=== PATIENT | female | born 1990 | race Caucasian/White ===

== ENCOUNTER 2022-04-20 11:47 | Inpatient (IN) ==
[2022-04-20 11:24] LABS: Basophils % 0.2 %; Eosinophils # 0.1 K/mcL (0.0-0.6); Eosinophils % 1.2 %; Hematocrit 38.4 % (35.3-44.9); Hemoglobin 13.1 g/dL (11.5-15.4); Immature Granulocytes % 0.5 % (0-4); Lymphocytes # 1.3 K/mcL (0.6-4.6); Lymphocytes % 15.2 %; Mean Corpuscular HGB Conc 34.1 g/dL (31.6-35.5); Mean Corpuscular Hemoglobin 28.9 pg (28.0-33.3); Mean Corpuscular Volume 84.8 fL (83.0-100.0); Mean Platelet Volume 11.8 fL (9.4-12.4); Monocytes # 0.5 K/mcL (0.0-1.3); Monocytes % 5.6 %; Neutrophils # 6.6 K/mcL (1.6-8.9); Platelet Count 101 K/mcL (140-400); Red Blood Count 4.53 M/mcL (3.82-4.97); Red Cell Distribution Width 14.6 % (11.5-14.5); Segmented Neutrophils % 77.3 %; White Blood Count 8.5 K/mcL (4.3-11.1)
[2022-04-20 11:32] LABS: Creatinine,Urine 112 mg/dL; Protein/Creatinine Ratio,Urine 0.18 mg/mg (0.00-0.20)
[2022-04-20 11:42] LABS: Alanine Aminotransferase 12 Units/L (7-52); Aspartate Amino Transferase 16 Units/L (13-39); BUN/Creatinine Ratio 14 (6-26); Blood Urea Nitrogen 7 mg/dL (6-20); Lactate Dehydrogenase 144 Units/L (140-271); eGFR For African Americans > 60 (> 60); eGFR For Non-African Americans > 60 (> 60)
[~2022-04-20 11:47] MED LIST: *HR* FentaNYL (PF) 100 MCG/2 ML VIAL IVP PRN; Azithromycin 500 MG in 0.9 % Sodium Chloride 250 ML IVPB PRN; Famotidine 20 MG/2 ML VIAL IVP PRN; Metoclopramide 10 MG/2 ML VIAL IVP PRN; Naloxone 0.4 MG/ML INJ IVP PRN
[2022-04-20] MEDS ORDERED: Oxytocin 30 UNIT/503 ML BAG IVC SCH (12:00)
[2022-04-20] MEDS ORDERED: EPHEDrine 50 MG/ML VIAL IVP PRN (12:14)
[2022-04-20] MEDS ORDERED: Epidural Premix (fent/bupiv) 110 ML EP SCH (12:15)
[2022-04-20] MEDS ORDERED: Ropivacaine/PF 0.2% 200 ML EP SCH (13:30)
[2022-04-20] MEDS: Ringers Solution, Lactated 1,000 ML IVC SCH ×2 (15:25→19:47)
[2022-04-20 16:00] LABS: Amphetamine Screen,Urine Negative ng/mL (Cutoff=1000); Barbiturate Screen,Urine Negative ng/mL (Cutoff=200); Benzodiazepines Screen,Urine Negative ng/mL (Cutoff=200); Cannabinoid Screen,Urine Negative ng/mL (Cutoff = 50); Cocaine Screen,Urine Negative ng/mL (Cutoff= 300); Opiate Screen,Urine Negative ng/mL (Cutoff=300); Phencyclidine Screen,Urine Negative ng/mL (Cutoff=25)
[2022-04-21] MEDS: Ondansetron 4 MG/2 ML VIAL IVP PRN ×2 (04:27→09:53)
[2022-04-21] MEDS: Ringers Solution, Lactated 1,000 ML IVC SCH (04:28)
[2022-04-21] MEDS ORDERED: Lidocaine -MPF 2% 2 ML VIAL ONE (07:43)
[2022-04-21] MEDS ORDERED: Ropivacaine/PF 0.2% 20 ML VIAL ONE (07:44)
[2022-04-21] MEDS ORDERED: *HR* Buprenorphine HCl 8 MG TAB.SUBL SL SCH (09:00)
[2022-04-21] MEDS ORDERED: CeFAZolin Syr 3,000MG/30 ML 3,000 MG/30 ML SYRINGE IVPB ONE (18:33)
[2022-04-21] MEDS ORDERED: Lidocaine/EPI 1:200k 2% PF 20 ML VIAL ONE (18:38)
[2022-04-21] MEDS ORDERED: Ondansetron 4 MG/2 ML VIAL ONE (18:38)
[2022-04-21] MEDS ORDERED: Acetaminophen IV 1,000 MG/100 ML BAG IVPB ONE (18:39)
[2022-04-21] MEDS ORDERED: Ketorolac 30 MG/ML VIAL ONE (18:39)
[2022-04-21] MEDS ORDERED: *HR* Morphine Sulfate/PF 10 MG/10 ML AMPUL ONE (20:06)
[2022-04-21] MEDS ORDERED: Oxytocin 30 UNIT/503 ML BAG IVC SCH (23:52)
[2022-04-21] MEDS ORDERED: Ondansetron 4 MG/2 ML VIAL IVP PRN (23:52)
[2022-04-21] MEDS ORDERED: Metoclopramide 10 MG/2 ML VIAL IVP PRN (23:52)
[2022-04-21] MEDS ORDERED: OXYTOCIN/RINGERS LACTATE 10 UNIT/166.6 ML BAG IVC ONE (23:52)
[2022-04-22] MEDS: Acetaminophen 325 MG TABLET PO SCH ×4 (00:31→18:29)
[2022-04-22] MEDS: Ibuprofen 600 MG TABLET PO SCH ×4 (00:31→18:29)
[2022-04-22] MEDS ORDERED: Ketorolac 30 MG/ML VIAL IVP SCH (02:30)
[2022-04-22 04:42] LABS: Basophils % 0.2 %; Immature Granulocytes % 0.5 % (0-4); Lymphocytes # 1.2 K/mcL (0.6-4.6); Lymphocytes % 9.6 %; Mean Corpuscular HGB Conc 33.3 g/dL (31.6-35.5); Mean Corpuscular Hemoglobin 28.8 pg (28.0-33.3); Mean Corpuscular Volume 86.5 fL (83.0-100.0); Mean Platelet Volume 11.5 fL (9.4-12.4); Monocytes # 0.6 K/mcL (0.0-1.3); Monocytes % 4.8 %; Platelet Count 108 K/mcL (140-400); Red Blood Count 4.16 M/mcL (3.82-4.97); Red Cell Distribution Width 14.9 % (11.5-14.5); Segmented Neutrophils % 84.9 %; White Blood Count 12.8 K/mcL (4.3-11.1)
[2022-04-22 04:45] LABS: Neutrophils # 10.9 K/mcL (1.6-8.9)
[2022-04-22] MEDS: *HR* Buprenorphine HCl 8 MG TAB.SUBL SL SCH (09:02)
[2022-04-22] MEDS: Prenatal Vit/FA 1 EACH TABLET PO SCH (09:03)
[2022-04-22] MEDS: Simethicone 80 MG TAB.CHEW PO PRN ×2 (11:39→20:54)
[2022-04-23] MEDS: Ibuprofen 600 MG TABLET PO SCH ×4 (00:39→23:04)
[2022-04-23] MEDS: Acetaminophen 325 MG TABLET PO SCH ×4 (00:39→23:04)
[2022-04-23] MEDS: Prenatal Vit/FA 1 EACH TABLET PO SCH (08:21)
[2022-04-23] MEDS: *HR* Buprenorphine HCl 8 MG TAB.SUBL SL SCH (08:22)
[2022-04-23] MEDS ORDERED: Lanolin 7 G OINT...G. TP PRN (12:22)
[2022-04-24] MEDS: Acetaminophen 325 MG TABLET PO SCH (05:08)
[2022-04-24] MEDS: Ibuprofen 600 MG TABLET PO SCH (05:08)
[2022-04-24 05:23] VITALS: O2SAT 96
[2022-04-24 07:31] VITALS: BP 125/73; PULSE 75; TEMP 98.2
[2022-04-24] MEDS: Prenatal Vit/FA 1 EACH TABLET PO SCH (09:41)
[2022-04-24] MEDS: *HR* Buprenorphine HCl 8 MG TAB.SUBL SL SCH (09:42)
== END 2022-04-24 13:29 | disposition home or self-care (01) | DRG 540 ==
LOC: 1NENULAB → 1NENUOBS 04-21 23:15
PROVIDERS: ADMIT Obstetrics & Gynecology; ATTEND Obstetrics & Gynecology